=== PATIENT | male | born 1940 | race Caucasian/White ===

== ENCOUNTER 2018-08-04 09:33 | Observation (INO) | payer MEDICARE, BC, SELFPAY ==
[2018-08-04] VITALS (12 sets, daily range): BP systolic 130–185; BP diastolic 76–115; PULSE 75–125; RESP 17–21; TEMP 36.6–37.1; O2SAT 93–98; BMI 31.1
--- NOTE | 2018-08-04 09:53 | DI.RAD.S_ITS ---
PROCEDURE: XR CHEST 1V INDICATIONS: chest pain TECHNIQUE: One view of the chest was acquired. COMPARISON: None. FINDINGS: Surgical changes and devices: None. Lungs and pleura: Mild pulmonary vascular congestion is seen. No focal infiltrate.. No pleural effusions or pneumothorax. Mediastinum: Mediastinal contours appear normal. Heart size is enlarged. Bones and chest wall: No suspicious bony lesions. Overlying soft tissues appear unremarkable. IMPRESSION: Cardiomegaly and mild congestion. No focal infiltrate. Dictated by: Zack Ballard M.D. on 08/04/2018 at 10:08 Approved by: Zack Ballard M.D. on 08/04/2018 at 10:11
[2018-08-04] MEDS: ONDANSETRON 4 MG/2 ML INJ IV (10:13)
--- NOTE | 2018-08-04 10:19 | ED_ITS ---
HPI - Nausea/Vomiting/Diarrhea General Chief complaint: Upper Respiratory Symptoms Stated complaint: SINUS PROBLEMS/VOMITING Time Seen by Provider: 08/04/18 10:06 Source: patient and family Mode of arrival: ambulatory Limitations: no limitations History of Present Illness HPI Narrative: This is a 78-year-old male who comes in with complaint of nausea, vomiting and diarrhea that started on Saturday. Patient states he started feeling bad about Saturday, he has had a sinus infection for several months but did not feel like it was rapidly worsening. He has not been on any recent antibiotics. Patient states that he started getting nauseated having vomiting on Saturday and then diarrhea. He is continuing to have sort of a dry cough heaves and often help cough until he vomits and a post-tussive emesis. Patient had diarrhea and required changing his underwear 4 times overnight. He denies any abdominal pain, he denies any shortness of breath or chest pain or back pain. He states that he cannot feel his heart rate is fast or irregular. He has had the chills and his significant other states that he felt very sweaty and diaphoretic yesterday. Patient has had sort of greenish slime he is not sure if that is from a nasal source or from his chest patient has a history of hypertension, he does not have a history of AFib that he is aware of, he denies any surgical history, he does not smoke he drinks alcohol occasionally, no illicit. His primary care is Dr. Alves. Related Data Home Medications Medication Instructions Recorded Confirmed amlodipine-olmesartan 0.5 tab PO DAILY 08/04/18 08/04/18 Allergies Allergy/AdvReac Type Severity Reaction Status Date / Time No Known Drug Allergies Allergy Verified 08/04/18 09:45 Review of Systems Review of Systems ROS Unobtainable: All systems reviewed & are unremarkable except as noted in HPI and below Constitutional Denies chills, Reports fever(s) ( Subjective), Denies lethargy, Reports malaise and Denies weakness ENT Ears, Nose, Mouth, and Throat: Denies dizziness, Reports nasal congestion, Reports nasal discharge, Denies neck pain, Denies sinus pain and Reports sinus pressure Cardiovascular Denies chest pain, Reports diaphoresis, Denies syncope, Denies irregular heart rhythm, Reports leg edema ( maybe patient), Denies lightheadedness, Denies palpitations, Denies dyspnea, Denies dyspnea on exertion and Denies orthopnea Respiratory Reports change in phlegm color, Denies chest congestion, Reports cough, Denies hemoptysis, Reports excessive phlegm production ( green), Denies dyspnea, Denies dyspnea on exertion and Reports wheezing ( mild weight) Gastrointestinal Gastrointestinal: Denies abdominal pain, Denies change in bowel habits, Reports diarrhea, Reports nausea and Reports vomiting Genitourinary Denies hematuria, Denies flank pain, Denies urinary incontinence, Denies urinary urgency and Reports other ( decreased urine output) Musculoskeletal Denies back pain and Denies neck pain Integumentary/Breasts Denies rash Neurologic Denies dizziness, Denies syncope and Denies weakness Endocrine Denies palpitations Allergic/Immunologic Reports wheezing ( mild weight) PFSH Medical History Hypertension (Acute) Social History household members: spouse Smoking Status: Never smoker alcohol intake: current substance use type: does not use Social History household members: spouse Smoking Status: Never smoker alcohol intake: current substance use type: does not use Exam Narrative Exam Narrative: GEN: well nourished, well appearing male, alert and oriented x 3, patient appears to be in mild distress. HEENT: Atraumatic, pupils are equal round reactive to light, extraocular movements are intact, nares are clear, TMs are clear with no fluid, there is no conjunctival pallor. Throat is clear without any exudates, erythema, tonsillar enlargement or uvular deviation, no sinus tenderness. HEART: irregularly irregular rate and rhythm without murmur, clicks, rubs. Pulses are equal in upper and lower extremities LUNGS:Lungs breath sounds are equal bilaterally patient has a very faint wheeze on the left, wheezes, rales, crackles, chest moves symmetrically, no tachypnea, no accessory muscle use. ABD:bowel sounds hyperactive, soft, non-tender, no guarding, rebound, rigidity, no masses noted, no hepatosplenomegaly :No CVA tenderness MSCL: Non-tender, no muscle atrophy, muscles strength 5/5 upper and lower extremities, full range of motion NEURO:CN 2-12 intact, sensation normal Initial Vital Signs Initial Vital Signs: Vital Signs Temperature 98.4 F 08/04/18 09:40 Pulse Rate 124 H 08/04/18 09:40 Respiratory Rate 20 08/04/18 09:40 Blood Pressure 153/76 H 08/04/18 09:40 Pulse Oximetry 94 08/04/18 09:40 Course Orders Ordered: ED Orders 08/04/18 09:53 XR chest 1V Stat 08/04/18 09:58 EKG-12 Lead Stat 08/04/18 10:18 XR abdomen 1V Stat 08/04/18 10:20 Complete Blood Count AUTO DIFF Stat Comprehensive Metabolic Panel Stat FLU A and B [Influenza A and B by PCR Rapid] Stat Lipase Stat Partial Thromboplastin Time Stat Prothrombin Time INR Stat Troponin & CK Cardiac Panel Stat 08/04/18 11:24 Sputum Culture Stat 08/04/18 11:30 Urine Microscopic Stat 08/04/18 14:56 Education, smoking cessation ONGOING Acetaminophen (Tylenol) 650 mg PO Q6HR PRN PRN Reason: As Needed for Fever/Mild Pain Bisacodyl (Dulcolax) 10 mg PO DAILY PRN PRN Reason: Constipation Calcium Carbonate (Tums) 1,000 mg PO Q4HR PRN PRN Reason: Dyspepsia Heparin Sodium (Porcine) (Heparin) 5,000 unit SUBCUT BID JULIANN Sodium Chloride (Normal Saline 0.9%) 1,000 mls @ 100 mls/hr IV CONT JULIANN Last Admin: 08/04/18 16:08 Dose: 100 mls/hr Ibuprofen (Advil) 600 mg PO Q6HR PRN PRN Reason: As Needed for Fever/Mild Pain Magnesium Hydroxide (Milk Of Magnesia) 30 ml PO DAILY PRN PRN Reason: Constipation Ondansetron HCl (Zofran) 4 mg IV Q8HR PRN PRN Reason: Nausea And Vomiting Ondansetron HCl (Zofran Odt) 4 mg PO Q8HR PRN PRN Reason: Nausea And Vomiting Promethazine HCl (Phenadoz) 12.5 mg NC Q6HR PRN PRN Reason: Nausea And Vomiting Sennosides (Senna) 17.2 mg PO BEDTIME PRN PRN Reason: Constipation Discontinued Medications Sodium Chloride (Normal Saline 0.9%) 1,000 mls @ 1,000 mls/hr IV BOLUS ONE Stop: 08/04/18 11:17 Last Infusion: 08/04/18 11:36 Dose: 0 mls/hr Admin: 08/04/18 10:20 Dose: 1,000 mls/hr Sodium Chloride (Normal Saline 0.9%) 1,000 mls @ 1,000 mls/hr IV BOLUS ONE Stop: 08/04/18 12:32 Last Infusion: 08/04/18 13:27 Dose: 0 mls/hr Admin: 08/04/18 12:11 Dose: 1,000 mls/hr Ondansetron HCl (Zofran) 4 mg IV NOW ONE Stop: 08/04/18 09:54 Last Admin: 08/04/18 10:13 Dose: 4 mg Vital Signs - 8 hr 08/04/18 09:40 08/04/18 10:10 08/04/18 10:30 Temperature 98.4 F Pulse Rate 124 H 125 H 116 H Respiratory Rate 20 17 18 Blood Pressure Blood Pressure [Right Arm] 153/76 H 153/91 H 161/97 H Pulse Oximetry 94 93 97 08/04/18 11:15 08/04/18 11:30 08/04/18 12:02 Temperature Pulse Rate 101 H 97 H 104 H Respiratory Rate 20 21 18 Blood Pressure Blood Pressure [Right Arm] 157/89 H 173/103 H 149/100 H Pulse Oximetry 96 95 95 08/04/18 12:30 08/04/18 13:00 08/04/18 14:13 Temperature 98.7 F Pulse Rate 103 H 92 H 109 H Respiratory Rate 20 18 20 Blood Pressure 185/115 H Blood Pressure [Right Arm] 157/100 H 172/105 H Pulse Oximetry 96 97 98 08/04/18 15:06 08/04/18 15:50 Temperature 98.3 F Pulse Rate 98 H 90 Respiratory Rate 19 Blood Pressure 154/81 H 130/84 Blood Pressure [Right Arm] Pulse Oximetry 98 93 MDM - Nausea/Vomiting/Diarrhea Lab Data Result diagrams: 08/04/18 10:20 08/04/18 10:20 Lab Results 08/04/18 08/04/18 08/04/18 Range/Units 10:20 10:20 10:20 WBC 6.6 (4.5-11.0) X10^3/uL RBC 5.21 (4.5-5.9) X10^6/uL Hgb 16.6 (13.5-17.5) g/dL Hct 50.0 (41-53) % MCV 96.0 (80-100) fL MCH 32.0 (26-34) PG MCHC 33.3 (30-36) % RDW 13.0 (11.6-14.8) % Plt Count 138 L (150-400) X10^3/uL Neut % (Auto) 79.0 H (50-75) % Lymph % (Auto) 14.3 L (25-40) % Hartley % (Auto) 6.4 (3-14) % Eos % (Auto) 0.1 L (2-4) % Baso % (Auto) 0.2 (0-2) % Neut # (Auto) 5200 (9238-9319) /uL Lymph # (Auto) 900 L (2324-6414) /uL Hartley # (Auto) 400 (0-900) /uL Eos # (Auto) 0 (0-450) /uL Baso # (Auto) 0 (0-100) /uL PT 12.2 (10.1-12.7) SECONDS INR 1.1 (0.9-1.3) APTT 22 L (26.4-36.2) SECONDS Sodium 136 L (137-145) mmol/L Potassium 3.9 (3.4-5.1) mmol/L Chloride 97 L (98-107) mmol/L Carbon Dioxide 25 (22-32) mmol/L BUN 23 H (9-20) mg/dL Creatinine 1.10 (0.66-1.25) mg/dL Estimated GFR > 60.0 (>60) mL/min BUN/Creatinine Ratio 20.9 (6-22) Glucose 128 H (80-110) mg/dL Calcium 8.9 (8.4-10.2) mg/dL Total Bilirubin 0.6 (0.2-1.3) mg/dL AST 57 (17-59) IU/L ALT 34 (21-72) IU/L Alkaline Phosphatase 55 (38-126) U/L Total Creatine Kinase 752 H (55-170) U/L CK-MB (CK-2) 3.28 H (<2.37) ng/mL CK-MB (CK-2) Rel Index 0.4 L (1.5-5.0) % Troponin I 0.020 (0.01-0.034) ng/mL Total Protein 7.7 (6.3-8.2) g/dL Albumin 4.4 (3.5-5.0) g/dL Globulin 3.3 (1.7-4.1) g/dL Albumin/Globulin Ratio 1.3 (1.0-2.8) Lipase 57 (23-300) U/L Urine RBC (0-5/HPF) Urine WBC (0-5/HPF) Ur Squamous Epith Cells Urine Bacteria (None) Granular Casts (None) Ur Culture Indicated? Influenza A & B (PCR) (Negative) 08/04/18 08/04/18 Range/Units 10:20 11:30 WBC (4.5-11.0) X10^3/uL RBC (4.5-5.9) X10^6/uL Hgb (13.5-17.5) g/dL Hct (41-53) % MCV (80-100) fL MCH (26-34) PG MCHC (30-36) % RDW (11.6-14.8) % Plt Count (150-400) X10^3/uL Neut % (Auto) (50-75) % Lymph % (Auto) (25-40) % Hartley % (Auto) (3-14) % Eos % (Auto) (2-4) % Baso % (Auto) (0-2) % Neut # (Auto) (8990-7428) /uL Lymph # (Auto) (8658-5608) /uL Hartley # (Auto) (0-900) /uL Eos # (Auto) (0-450) /uL Baso # (Auto) (0-100) /uL PT (10.1-12.7) SECONDS INR (0.9-1.3) APTT (26.4-36.2) SECONDS Sodium (137-145) mmol/L Potassium (3.4-5.1) mmol/L Chloride (98-107) mmol/L Carbon Dioxide (22-32) mmol/L BUN (9-20) mg/dL Creatinine (0.66-1.25) mg/dL Estimated GFR (>60) mL/min BUN/Creatinine Ratio (6-22) Glucose (80-110) mg/dL Calcium (8.4-10.2) mg/dL Total Bilirubin (0.2-1.3) mg/dL AST (17-59) IU/L ALT (21-72) IU/L Alkaline Phosphatase (38-126) U/L Total Creatine Kinase (55-170) U/L CK-MB (CK-2) (<2.37) ng/mL CK-MB (CK-2) Rel Index (1.5-5.0) % Troponin I (0.01-0.034) ng/mL Total Protein (6.3-8.2) g/dL Albumin (3.5-5.0) g/dL Globulin (1.7-4.1) g/dL Albumin/Globulin Ratio (1.0-2.8) Lipase (23-300) U/L Urine RBC None seen (0-5/HPF) Urine WBC 1-5/hpf (0-5/HPF) Ur Squamous Epith Cells 1-5 /hpf Urine Bacteria None seen (None) Granular Casts 5-10/lpf (None) Ur Culture Indicated? Cult not indicated Influenza A & B (PCR) Positive, type a A (Negative) Urine Dip Bedside Urine Glucose Negative Bedside Urine Bilirubin + 1 Bedside Urine Ketone ++ 40 Urine Specific Logan 1.030 Bedside Urine Occult Blood ++ Bedside Urine pH 5.5 Bedside Urine Protein ++ 100 Bedside Urine Urobilinogen +/- 1mg Bedside Urine Nitrite - Negative Bedside Urine Leukocytes - Negative Esterase Imaging Data Chest x-ray: Radiologist's impression: [place] [address] XRay Report Signed Patient: Alex Kwan MMR#: [id number] : 1940Acct:[id number] Age/Sex: 78 / MDate of Service: 08/04/18 Loc: ED Accession Number: [id number] Procedure: XR chest 1V Ordering Provider: Ericka Junior D.O. PROCEDURE: XR CHEST 1V INDICATIONS: chest pain TECHNIQUE: One view of the chest was acquired. COMPARISON: None. FINDINGS: Surgical changes and devices: None. Lungs and pleura: Mild pulmonary vascular congestion is seen. No focal infiltrate.. No pleural effusions or pneumothorax. Mediastinum: Mediastinal contours appear normal. Heart size is enlarged. Bones and chest wall: No suspicious bony lesions. Overlying soft tissues appear unremarkable. IMPRESSION: Cardiomegaly and mild congestion. No focal infiltrate. Dictated by: Zack Ballard M.D. on 08/04/2018 at 10:08 Approved by: Zack Ballard M.D. on 08/04/2018 at 10:11 Abdominal x-ray: Radiologist's impression: [address] [address] XRay Report Signed Patient: Alex Kwan#: [id number] : 1940Acct:[id number] Age/Sex: 78 / MDate of Service: 08/04/18 Loc: ED Accession Number: [id number] Procedure: XR abdomen 1V Ordering Provider: Ericka Junior D.O. PROCEDURE: XR ABDOMEN 1V INDICATIONS: vomiting/diarrhea TECHNIQUE: One view of the abdomen acquired. COMPARISON: None. FINDINGS: Surgical changes and devices: None. Bowel: Bowel gas pattern is normal. Soft tissues: No suspicious abdominal calcifications. Visualized solid organ contours appear normal in size. Bones: No suspicious bony lesions. Age-appropriate bony degenerative changes are seen. IMPRESSION: A nonobstructive bowel gas pattern is seen. As clinically appropriate, please consider a repeat plain film study or a dedicated CT of the abdomen and pelvis, if the patient's symptoms persist or worsen. Dictated by: Markus Champion M.D. on 08/04/2018 at 9:44 Approved by: Markus Champion M.D. on 08/04/2018 at 9:45 ECG Data Attestation: I personally reviewed and interpreted this ECG as follows: Prior ECG tracings: not available for review Interpretation: AFib with rapid ventricular response with a rate of 132, P are not present, QRS of 148 and QTC of 390. Patient appears have a right bundle branch block as well as a left anterior fascicular block. MDM Narrative Medical decision making narrative: Patient is in AFib with RVR but I suspect some of this may be secondary to dehydration with his vomiting and diarrhea. He also has not been able to take his typical medication because he has been throwing up. Plan to get some fluids and re-evaluate his heart rate influenza was positive. Patient's heart rate has been improving with fluids after a L and a half he has come down to 103 for his rate. Patient's oxygen did dip while he was here in the department into the high 80s. Patient was not asleep Um and he has had pretty extensive purulent green sputum. Chest x-ray does not show a clear infiltrate to start on antibiotics. Discussed with Dr. Goldstein and she accepts for observation. Discharge Plan Departure Patient Disposition: Admitted as Observation Clinical Impression: Influenza A, Atrial fibrillation with RVR, Hypoxia Discharge Date/Time: 08/04/18 13:45 Interventions: ED Discharge Assessment Last Done: 08/04/18 13:32 Admit Date/Time: 08/04/18 13:19 Admit Provider: Sabina Culp
[2018-08-04] MEDS: SODIUM CHLORIDE 0.9% 1,000 ML 1000 ML IV ×2 (10:20→12:11)
[2018-08-04 10:24] LABS: Add Manual Diff / Slide Review NO; Basophils Absolute Auto 0 /uL (0-100); Basophils Percent Auto 0.2 % (0-2); Eosinophils Absolute Auto 0 /uL (0-450); Eosinophils Percent Auto 0.1 % (2-4); Hemoglobin 16.6 g/dL (13.5-17.5); Lymphocytes Absolute Auto 900 /uL (1100-4500); Lymphocytes Percent Auto 14.3 % (25-40); Mean Corpuscular HGB Conc 33.3 % (30-36); Monocytes Absolute Auto 400 /uL (0-900); Monocytes Percent Auto 6.4 % (3-14); Neutrophils Absolute Auto 5200 /uL (1500-7000); Platelet Count 138 X10^3/uL (150-400); Red Blood Cell Count 5.21 X10^6/uL (4.5-5.9); White Blood Cell Count 6.6 X10^3/uL (4.5-11.0)
[2018-08-04 10:27] LABS: INR 1.1 (0.9-1.3); Prothrombin Time 12.2 SECONDS (10.1-12.7)
[2018-08-04 10:30] LABS: PTT Partial Thromboplastin Tim 22 SECONDS (26.4-36.2)
[2018-08-04 10:38] LABS: Alanine Aminotransferase 34 IU/L (21-72); Albumin 4.4 g/dL (3.5-5.0); Albumin Globulin Ratio 1.3 (1.0-2.8); Alkaline Phosphatase 55 U/L (38-126); Aspartate Aminotransferase 57 IU/L (17-59); BUN Creatinine Ratio 20.9 (6-22); Bilirubin Total 0.6 mg/dL (0.2-1.3); Blood Urea Nitrogen 23 mg/dL (9-20); Calcium 8.9 mg/dL (8.4-10.2); Carbon Dioxide 25 mmol/L (22-32); Chloride 97 mmol/L (98-107); Creatine Kinase 752 U/L (55-170); Estimated Glomerular Filt Rate > 60.0 mL/min (>60); Globulin 3.3 g/dL (1.7-4.1); Glucose 128 mg/dL (80-110); HEMOLYSIS 31 (0-50); Lipase 57 U/L (23-300); Potassium 3.9 mmol/L (3.4-5.1); Sodium 136 mmol/L (137-145); Total Protein 7.7 g/dL (6.3-8.2)
[2018-08-04 10:56] LABS: CKMB % Relative Index 0.4 % (1.5-5.0); Creatine Kinase MB 3.28 ng/mL (<2.37)
[2018-08-04 12:08] LABS: Bacteria Urine None Seen; RBC Urine None Seen (0-5/HPF); WBC Urine 1-5/HPF (0-5/HPF)
[2018-08-04 12:09] LABS: Culture Indicated Urine Cult Not Indicated; Granular Casts Urine 5-10/LPF; Squamous Epithelial Cell Urine 1-5 /HPF
--- NOTE | 2018-08-04 15:04 | PM.HP.1 ---
History of Present Illness Date Patient Seen: 08/04/18 Chief complaint: SINUS PROBLEMS/VOMITING Narrative: Alex Kwan is an 78-year-old male with a past medical history significant for hypertension who presented complaining of cough with sputum production since last Sunday 07/30. He reports that he began coughing last Saturday. His cough has become gradually productive and he reports ?it is loosening up.? He is had accompanying nausea, diarrhea (5-6 episodes a day which has now resolved), chills, dizziness, rhinitis and nasal congestion. He denies fever, vomiting, hemoptysis, ear pain, shortness of breath, or chest pain. He also reports significant coughing that has led to Post-tussive emesis and his stomach muscles aching. He did not get his flu shot this year. He denies sick contacts. He reports poor appetite. He has no other symptoms and does not believe he has had Influenza before. Patient is positive for influenza A. He was also found to be in atrial fibrillation with RVR which responded to IV fluid administration and he converted to normal sinus rhythm at 15:15. He denies any history of previous atrial fibrillation or irregular heart rhythm. He has no history of blood clots. Patient History Medical History Hypertension (Acute) Skin cancer of chest, excluding breast (Acute) Skin cancer of face (Acute) Surgical History History of bilateral inguinal hernia repair (Acute) History of tonsillectomy (Acute) Family History Father Heart attack Mother No problems noted. Brother Heart disease History of heart artery stent Sister History of heart artery stent Heart disease Social History household members: spouse Smoking Status: Never smoker alcohol intake: current substance use type: does not use Family & Social History Family History Father Heart attack Mother No problems noted. Brother Heart disease History of heart artery stent Sister History of heart artery stent Heart disease Social History: household members spouse Prior Living Arrangements House The patient has been for 67 years. He has 3 daughters, one of which has lupus and is on dialysis and the other 2 are healthy. Safety & Behavioral: Feels Safe in Current Yes Environment Been Physically Hurt or No Threatened By a Person Suicidal Ideation Description None Suicide Plan Description No Plan Tobacco & Substance use: Smoking Status Never smoker alcohol intake current alcohol intake frequency 1-2 drinks a week Substance Use Type does not use Meds Home Medications Medication Instructions Recorded Confirmed Type amlodipine-olmesartan 0.5 tab PO DAILY 08/04/18 08/04/18 History Allergies Allergy/AdvReac Type Severity Reaction Status Date / Time No Known Drug Allergies Allergy Verified 08/04/18 09:45 Review of Systems Review of Systems A 10 system comprehensive review of systems was conducted with the patient and found to be negative except as above in the History of Present Illness. Exam Vital Signs (past 8 hours): - 08/04/18 09:40 08/04/18 10:10 08/04/18 10:30 Temperature 98.4 F Pulse Rate 124 H 125 H 116 H Respiratory Rate 20 17 18 Blood Pressure Blood Pressure [Right Arm] 153/76 H 153/91 H 161/97 H Pulse Oximetry 94 93 97 08/04/18 11:15 08/04/18 11:30 08/04/18 12:02 Temperature Pulse Rate 101 H 97 H 104 H Respiratory Rate 20 21 18 Blood Pressure Blood Pressure [Right Arm] 157/89 H 173/103 H 149/100 H Pulse Oximetry 96 95 95 08/04/18 12:30 08/04/18 13:00 08/04/18 14:13 Temperature 98.7 F Pulse Rate 103 H 92 H 109 H Respiratory Rate 20 18 20 Blood Pressure 185/115 H Blood Pressure [Right Arm] 157/100 H 172/105 H Pulse Oximetry 96 97 98 Oxygen Delivery Method Nasal Cannula Oxygen Flow Rate 2 Narrative Exam Narrative: General: Older gentleman lying in bed and in no acute distress, appears younger than his stated age, well-developed, well-nourished, appropriately interactive. HEENT: Normocephalic, atraumatic. External ears without defect. Pupils equal, round, and reactive to light. Anicteric sclerae, moist conjunctivae, and no lid lag. Oropharynx free of erythema and cobble stoning with moist mucosa. Neck: Supple with full range of motion. No jugular venous distension. No bruits. No lymphadenopathy or thyromegaly. Cardiovascular: Regular rate and rhythm without murmurs, rubs, or gallops appreciated. Pulmonary: Clear to auscultation bilaterally with scattered wheeze. No obvious rales or crackles. Normal respiratory effort with no use of accessory muscles. Abdomen: Soft, bowel sounds present, nontender, nondistended. No hepatosplenomegaly or masses appreciated. Extremities: No clubbing, cyanosis, or edema. Skin: Normal temperature, turgor, and texture; no rash, ulcers, or subcutaneous nodules appreciated. Neurological: Cranial nerves grossly intact. Normal muscle strength, tone, and bulk. Reflexes, coordination, and sensory function within normal limits. No known gait impairment. Psychiatric: Normal mood and affect. Alert and oriented to person, place, and time. Objective Labs Result Diagrams: 08/04/18 10:20 08/04/18 10:20 Labs: Laboratory Results - last 24 hr 08/04/18 08/04/18 08/04/18 10:20 10:20 10:20 WBC 6.6 RBC 5.21 Hgb 16.6 Hct 50.0 MCV 96.0 MCH 32.0 MCHC 33.3 RDW 13.0 Plt Count 138 L Neut % (Auto) 79.0 H Lymph % (Auto) 14.3 L [place] % (Auto) 6.4 Eos % (Auto) 0.1 L Baso % (Auto) 0.2 Neut # (Auto) 5200 Lymph # (Auto) 900 L [place] # (Auto) 400 Eos # (Auto) 0 Baso # (Auto) 0 PT 12.2 INR 1.1 APTT 22 L Sodium 136 L Potassium 3.9 Chloride 97 L Carbon Dioxide 25 BUN 23 H Creatinine 1.10 Estimated GFR > 60.0 BUN/Creatinine Ratio 20.9 Glucose 128 H Calcium 8.9 Total Bilirubin 0.6 AST 57 ALT 34 Alkaline Phosphatase 55 Total Creatine Kinase 752 H CK-MB (CK-2) 3.28 H CK-MB (CK-2) Rel Index 0.4 L Troponin I 0.020 Total Protein 7.7 Albumin 4.4 Globulin 3.3 Albumin/Globulin Ratio 1.3 Lipase 57 Urine RBC Urine WBC Ur Squamous Epith Cells Urine Bacteria Granular Casts Ur Culture Indicated? Influenza A & B (PCR) 08/04/18 08/04/18 10:20 11:30 WBC RBC Hgb Hct MCV MCH MCHC RDW Plt Count Neut % (Auto) Lymph % (Auto) [place] % (Auto) Eos % (Auto) Baso % (Auto) Neut # (Auto) Lymph # (Auto) [place] # (Auto) Eos # (Auto) Baso # (Auto) PT INR APTT Sodium Potassium Chloride Carbon Dioxide BUN Creatinine Estimated GFR BUN/Creatinine Ratio Glucose Calcium Total Bilirubin AST ALT Alkaline Phosphatase Total Creatine Kinase CK-MB (CK-2) CK-MB (CK-2) Rel Index Troponin I Total Protein Albumin Globulin Albumin/Globulin Ratio Lipase Urine RBC None seen Urine WBC 1-5/hpf Ur Squamous Epith Cells 1-5 /hpf Urine Bacteria None seen Granular Casts 5-10/lpf Ur Culture Indicated? Cult not indicated Influenza A & B (PCR) Positive, type a A Assessment & Plan Assessment & Plan narrative: Alex Kwan is an 78-year-old male with a past medical history significant for hypertension who presented complaining of cough with sputum production since last Sunday 07/30. He reports that he began coughing last Saturday. 1. Acute influenza A URI, present on admission. Active. -Patient presented with cough productive of sputum, nausea, chills, rhinitis, nasal congestion, and diarrhea. -Patient found to be positive for influenza A in ED. Patient is outside window for therapeutic treatment with oseltamivir. -Will treat patient symptomatically with Sudafed 30 mg every 6 hr as needed, nasal saline spray 3-4 times daily, Mucinex 1200 mg twice daily, and Tessalon Perles 100 mg 3 times daily as needed for cough. -Chest x-ray did not demonstrate a clear infiltrate, however, may blossom once patient receives IV fluids. -Will order complete pneumonia workup including: Respiratory viral PCR, sputum culture, strep pneumoniae and Legionella urine antigens, and blood cultures. -Will hold off on starting empiric antibiotics for pneumonia for now. Repeat chest x-ray if cough worsens or clinical exam changes. 2. New onset atrial fibrillation with RVR, present on admission. Resolved. -Patient initially was found to be in atrial fibrillation with RVR with heart rate in the 120s which improved with IV fluid administration. -Patient's [id number] score is a 3 making him moderate-high risk and should be anticoagulated. -Discussed anticoagulation in depth and will start aspirin 81 mg daily for now and we visit other more potent anticoagulants tomorrow after he has had time to think about it and is able to discuss with his . -Continue to monitor closely on telemetry. 3. Hypertension, chronic, present on admission. Stable. -Continue patient's amlodipine-olmesartan 5-40 mg daily. Patient is admitted under observation status with expected length of stay less than 2 midnights due to severity of presenting symptoms, risk of adverse event, and complexity of treatment plan.
--- NOTE | 2018-08-04 15:35 | PC.NURSE ---
Admit: Arrived to room 231 approx 1400. Awake and alert, oriented X3. SpO2 on 2L 98% at rest. Ambulated into bathroom with SBA. Oriented to room and call light, instructed to call for SBA OOB. Admit assessment completed by charge preparation technician, vikas shift RN aware that other admit assessment items still need to be completed.
[2018-08-04] MEDS: SODIUM CHLORIDE 0.9% 1,000 ML 100 ML IV (16:08)
[2018-08-04] MEDS: guaiFENesin ER 600 MG TAB 1200 MG PO (20:30)
[2018-08-04] MEDS: BENZONATATE 100 MG CAPSULE PO (20:31)
[2018-08-04] MEDS: HEPARIN 5,000 UNIT/ML VIAL 5000 UNIT SUBCUT (20:31)
[2018-08-04] MEDS: ASPIRIN EC 81 MG TABLET PO (20:31)
[2018-08-05] VITALS (11 sets, daily range): BP systolic 156–173; BP diastolic 87–103; PULSE 68–85; RESP 16–20; TEMP 35.9–37.6; O2SAT 90–96
[2018-08-05 00:18] LABS: Adenovirus Not Detected (Not Detect); Bordetella pertussis Not Detected (Not Detect); Chlamydophila pneumoniae Not Detected (Not Detect); Coronavirus 229E Not Detected (Not Detect); Coronavirus HKU1 Not Detected (Not Detect); Coronavirus NL 63 Not Detected (Not Detect); Coronavirus OC43 Not Detected (Not Detect); Human Metapneumovirus Not Detected (Not Detect); Human Rhinovirus/Enterovirus Not Detected (Not Detect); Influenza A Detected (Not Detect); Influenza B Not Detected (Not Detect); Mycoplasma pneumoniae Not Detected (Not Detect); Parainfluenza Virus 1 Not Detected (Not Detect); Parainfluenza Virus 2 Not Detected (Not Detect); Parainfluenza Virus 3 Not Detected (Not Detect); Parainfluenza Virus 4 Not Detected (Not Detect); Respiratory Syncytial Virus Not Detected (Not Detect)
[2018-08-05] MEDS: SODIUM CHLORIDE 0.9% 1,000 ML 100 ML IV (02:20)
--- NOTE | 2018-08-05 03:57 | PC.NURSE ---
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 IV in place in rt forearm, with NS infusing at 100cc/hr. Pt has occasional dry cough. Pt remains in droplet precautions for Influenza A. He remains on telemetry.
[2018-08-05 05:57] LABS: Add Manual Diff / Slide Review NO; Basophils Absolute Auto 0 /uL (0-100); Basophils Percent Auto 0.2 % (0-2); Eosinophils Absolute Auto 0 /uL (0-450); Eosinophils Percent Auto 0.5 % (2-4); Hemoglobin 13.4 g/dL (13.5-17.5); Lymphocytes Absolute Auto 1000 /uL (1100-4500); Lymphocytes Percent Auto 24.1 % (25-40); Mean Corpuscular HGB Conc 32.6 % (30-36); Mean Corpuscular Hemoglobin 31.5 PG (26-34); Mean Corpuscular Volume 96.5 fL (80-100); Monocytes Absolute Auto 400 /uL (0-900); Monocytes Percent Auto 8.3 % (3-14); Neutrophils Absolute Auto 2800 /uL (1500-7000); Neutrophils Percent Auto 66.9 % (50-75); Platelet Count 121 X10^3/uL (150-400); Red Blood Cell Count 4.25 X10^6/uL (4.5-5.9); Red Cell Distribution Width 12.5 % (11.6-14.8); White Blood Cell Count 4.2 X10^3/uL (4.5-11.0)
[2018-08-05 06:07] LABS: BUN Creatinine Ratio 17.3 (6-22); Blood Urea Nitrogen 19 mg/dL (9-20); Calcium 7.9 mg/dL (8.4-10.2); Carbon Dioxide 27 mmol/L (22-32); Chloride 102 mmol/L (98-107); Estimated Glomerular Filt Rate > 60.0 mL/min (>60); Glucose 94 mg/dL (80-110); HEMOLYSIS < 15 (0-50); Sodium 135 mmol/L (137-145)
[2018-08-05 06:20] LABS: Procalcitonin 0.67 ng/mL (<0.5)
[2018-08-05 06:37] LABS: Thyroid Stimulating Hormone 0.64 uIU/mL (0.47-4.68)
[2018-08-05] MEDS: AMLODIPINE 2.5 MG TABLET PO (09:18)
[2018-08-05] MEDS: ASPIRIN EC 81 MG TABLET PO (09:19)
[2018-08-05] MEDS: HEPARIN 5,000 UNIT/ML VIAL 5000 UNIT SUBCUT (09:19)
[2018-08-05] MEDS: guaiFENesin ER 600 MG TAB 1200 MG PO (09:19)
[2018-08-05] MEDS: OLMESARTAN 20 MG TABLET PO (09:20)
[2018-08-05] MEDS: ACETAMINOPHEN 325 MG TABLET 650 MG PO (09:21)
[2018-08-05] MEDS: BENZONATATE 100 MG CAPSULE PO (09:21)
--- NOTE | 2018-08-05 12:00 | PM.DS.1 ---
History of Present Illness Date Patient Seen: 08/04/18 Chief complaint: SINUS PROBLEMS/VOMITING Narrative: Written by myself Dr. Culp: Alex Kwan is an 78-year-old male with a past medical history significant for hypertension who presented complaining of cough with sputum production since last Sunday 07/30. He reports that he began coughing last Saturday. His cough has become gradually productive and he reports ?it is loosening up.? He is had accompanying nausea, diarrhea (5-6 episodes a day which has now resolved), chills, dizziness, rhinitis and nasal congestion. He denies fever, vomiting, hemoptysis, ear pain, shortness of breath, or chest pain. He also reports significant coughing that has led to Post-tussive emesis and his stomach muscles aching. He did not get his flu shot this year. He denies sick contacts. He reports poor appetite. He has no other symptoms and does not believe he has had Influenza before. Patient is positive for influenza A. He was also found to be in atrial fibrillation with RVR which responded to IV fluid administration and he converted to normal sinus rhythm at 15:15. He denies any history of previous atrial fibrillation or irregular heart rhythm. He has no history of blood clots. Discharge Providers Date of admission: 08/04/18 13:19 Discharge provider: Sabina Culp DO Discharge Date: 08/05/18 Summary Discharge Diagnosis: 1. Acute influenza A URI, present on admission. Resolving and improving. 2. New onset atrial fibrillation with RVR, present on admission. Resolved. 3. Hypertension, chronic, present on admission. Stable. Hospital Course: Alex Kwan is an 78-year-old male with a past medical history significant for hypertension who presented complaining of cough with sputum production since last Sunday 07/30. He reports that he began coughing last Saturday. 1. Acute influenza A URI, present on admission. Resolving and improving. -Patient presented with cough productive of sputum, nausea, chills, rhinitis, nasal congestion, and diarrhea. -Patient found to be positive for influenza A in ED. Patient is outside window for therapeutic treatment with oseltamivir. -Will treat patient symptomatically with Sudafed 30 mg every 6 hr as needed, nasal saline spray 3-4 times daily, Mucinex 1200 mg twice daily, and Tessalon Perles 100 mg 3 times daily as needed for cough. -Chest x-ray did not demonstrate a clear infiltrate and does not have pneumonia by clinical exam. -Ordered complete pneumonia workup including: Respiratory viral PCR positive for influenza A, sputum culture preliminarily growing heavy growth normal respiratory isabel, strep pneumoniae and Legionella urine antigens pending. -Provided as needed Xopenex as needed for wheezing. 2. New onset atrial fibrillation with RVR, present on admission. Resolved. -Patient initially was found to be in atrial fibrillation with RVR with heart rate in the 120s which improved with IV fluid administration and he spontaneously converted into normal sinus rhythm as below. -Patient's [id number] score is a 3 making him moderate-high risk and should be anti-coagulated. -Discussed anticoagulation in depth. Continue aspirin 81 mg daily for now. The patient would like some time to think about more potent blood thinners and discuss this with his , as well as, his PCP [facility]. -Continued to monitor closely on telemetry. Patient spontaneously converted to normal sinus rhythm at 15:15 on 08/04 after IV fluid administration and has been in normal sinus rhythm since. 3. Hypertension, chronic, present on admission. Stable. -Continued patient's amlodipine-olmesartan 5-40 mg daily. Status at Discharge Functional status at discharge: independent ambulation Overall status at discharge: patient is progressing back to baseline Exam Vital Signs (past 8 hours): - 08/05/18 05:25 08/05/18 08:20 08/05/18 09:21 Temperature 98.0 F 99.6 F 99.6 F Pulse Rate 76 70 Respiratory Rate 16 Blood Pressure 156/96 H 173/103 H Pulse Oximetry 96 08/05/18 09:39 08/05/18 09:44 08/05/18 09:45 Temperature Pulse Rate Respiratory Rate Blood Pressure Pulse Oximetry 92 94 90 L 08/05/18 11:36 Temperature Pulse Rate Respiratory Rate Blood Pressure Pulse Oximetry 93 Oxygen Delivery Method Room Air Oxygen Flow Rate 0 Narrative Exam Narrative: General: Older gentleman lying in bed and in no acute distress, appears to be feeling better than yesterday, appears younger than his stated age, well-developed, well-nourished, appropriately interactive. HEENT: Normocephalic, atraumatic. External ears without defect. Pupils equal, round, and reactive to light. Anicteric sclerae, moist conjunctivae, and no lid lag. Oropharynx free of erythema and cobble stoning with moist mucosa. Neck: Supple with full range of motion. No jugular venous distension. No bruits. No lymphadenopathy or thyromegaly. Cardiovascular: Regular rate and rhythm without murmurs, rubs, or gallops appreciated. Pulmonary: Clear to auscultation bilaterally with wheeze in RUL. No obvious rales or crackles. Normal respiratory effort with no use of accessory muscles. Abdomen: Soft, bowel sounds present, non-tender, non-distended. No hepatosplenomegaly or masses appreciated. Extremities: No clubbing, cyanosis, or edema. Skin: Normal temperature, turgor, and texture; no rash, ulcers, or subcutaneous nodules appreciated. Neurological: Cranial nerves grossly intact. Normal muscle strength, tone, and bulk. Reflexes, coordination, and sensory function within normal limits. No known gait impairment. Psychiatric: Normal mood and affect. Alert and oriented to person, place, and time. Objective Labs Result Diagrams: 08/05/18 04:53 08/05/18 04:53 Labs: Laboratory Results - last 24 hr 08/04/18 08/04/18 08/05/18 11:30 22:50 04:53 WBC 4.2 L RBC 4.25 L Hgb 13.4 L Hct 41.0 MCV 96.5 MCH 31.5 MCHC 32.6 RDW 12.5 Plt Count 121 L Neut % (Auto) 66.9 Lymph % (Auto) 24.1 L [place] % (Auto) 8.3 Eos % (Auto) 0.5 L Baso % (Auto) 0.2 Neut # (Auto) 2800 Lymph # (Auto) 1000 L [place] # (Auto) 400 Eos # (Auto) 0 Baso # (Auto) 0 Sodium Potassium Chloride Carbon Dioxide BUN Creatinine Estimated GFR BUN/Creatinine Ratio Glucose Calcium Procalcitonin TSH Urine RBC None seen Urine WBC 1-5/hpf Ur Squamous Epith Cells 1-5 /hpf Urine Bacteria None seen Granular Casts 5-10/lpf Ur Culture Indicated? Cult not indicated Chlamy pneumoniae PCR Not detected Adenovirus (PCR) Not detected B.parapertussis DNA PCR Not detected Coronavirus OC43 (PCR) Not detected Coronavirus HKU1 (PCR) Not detected Coronavirus 229E (PCR) Not detected Coronavirus NL63 (PCR) Not detected Human Metapneumovir PCR Not detected Influenza Type A (PCR) Detected H Influenza Type B (PCR) Not detected M. pneumoniae (PCR) Not detected Parainfluenza 1 (PCR) Not detected Parainfluenza 2 (PCR) Not detected Parainfluenza 3 (PCR) Not detected Parainfluenza 4 (PCR) Not detected RSV (PCR) Not detected Entero/Rhino (PCR) Not detected 08/05/18 08/05/18 08/05/18 04:53 04:53 04:53 WBC RBC Hgb Hct MCV MCH MCHC RDW Plt Count Neut % (Auto) Lymph % (Auto) [place] % (Auto) Eos % (Auto) Baso % (Auto) Neut # (Auto) Lymph # (Auto) [place] # (Auto) Eos # (Auto) Baso # (Auto) Sodium 135 L Potassium 4.0 Chloride 102 Carbon Dioxide 27 BUN 19 Creatinine 1.10 Estimated GFR > 60.0 BUN/Creatinine Ratio 17.3 Glucose 94 Calcium 7.9 L Procalcitonin 0.67 H TSH 0.64 Urine RBC Urine WBC Ur Squamous Epith Cells Urine Bacteria Granular Casts Ur Culture Indicated? Chlamy pneumoniae PCR Adenovirus (PCR) B.parapertussis DNA PCR Coronavirus OC43 (PCR) Coronavirus HKU1 (PCR) Coronavirus 229E (PCR) Coronavirus NL63 (PCR) Human Metapneumovir PCR Influenza Type A (PCR) Influenza Type B (PCR) M. pneumoniae (PCR) Parainfluenza 1 (PCR) Parainfluenza 2 (PCR) Parainfluenza 3 (PCR) Parainfluenza 4 (PCR) RSV (PCR) Entero/Rhino (PCR) Discharge Plan Discharge Plan Patient Disposition: Home Discharge Med Rec/Prescriptions Prescriptions: New aspirin 81 mg Tablet,Delayed Release (Dr/Ec) 81 mg PO DAILY Qty: 30 RF: 0 Continued amlodipine-olmesartan 5-40 mg tablet 0.5 tab PO DAILY RF: 0 Follow up/Referrals: Paco Pina MD [Physician] - 08/13/18 2:15 pm (appt:08/13 @ 2:[address] pina [phone] ) Visit Report/Discharge Packet Instructions: DI for Atrial Fibrillation, DI for H1N1 Influenza -- Adult Discharge Data Attending Provider: Sabina Culp Admit Date/Time: 08/04/18 13:19
[2018-08-05] MEDS: LEVALBUTEROL 1.25 MG/0.5 ML NEB INH (12:26)
--- NOTE | 2018-08-05 13:38 | PC.NURSE ---
Discharge: Tele dc'd. IV dc'd intact. Had RT tx prior to discharge. Room air sats 93-94% at this time. Reviewed all d/c info thoroughly, including s/sx stroke/TIA and symptoms with which to call the doctor (or 911 in case of stroke/chest pain/worsening respiratory symptoms. Given education material on A-fib, influenza and Aspirin. Given follow up appt info, he will discuss anticoagulation with Dr Alves. Encouraged to rest as much as possible and drink plenty of hydrating fluids. All belongings collected and sent with patient at discharge including cellphone, glasses, clothing and shoes. Verbalized understanding of all d/c instructions and stated no further questions. Wheeled out to private vehicle accompanied by nursing staff.
--- NOTE | 2018-08-05 14:08 | CM.DANOTE ---
Discharge Planning/Care Management DCP: assessement: Case received today at noon in order to assist the DCP/[employer] G[employer]ER team. EMR reviewed and noted pt on droplet precautions for Influenza A Pt is a 78 year old male who admitted to care of hospitalist team yesterday. Payer: Medicare and [employer] [facility] PCP: Kayy Pt lives in [place] with his spouse. Went to room now to check in with pt and introduce self and role. Room empty and in process of being cleaned. Discussion with LYUDMILA Sebastian reveals that pt's arrived, Dr. Culp saw pt and ok'd home for a d/c home and outpt followup. They left for home shortly after and Jaz notes no concerns re this d/c were noted. CM Discharge Assessment Start: 08/05/18 14:06 Freq: Status: Active Protocol: Document 08/05/18 14:06 ITV (Rec: 08/05/18 14:07 [email or web address] [id number]) Discharge Planning Assessment Advance Directives? No History Provided By Medical Record Prior Living Arrangements House Household Members spouse Whiteboard Updated in Patient Room with Yes name and ext. # of Silk Soaker Review Status In Process Next Review Type Continued Stay Review Document 08/05/18 14:07 ITV (Rec: 08/05/18 14:08 ITV [id number]) Discharge Planning Assessment Advance Directives? No History Provided By Medical Record Prior Living Arrangements House Household Members spouse Whiteboard Updated in Patient Room with Yes name and ext. # of Silk Soaker Review Status In Process Next Review Type Continued Stay Review
[2018-08-06 14:07] LABS: Anti-Streptolysin O Antibody < 50 IU/mL (< 200)
== END 2018-08-05 13:57 | disposition home or self-care (01) ==
LOC: ED 13:17 → AC 13:21
PROVIDERS: Admitting Provider Internal Medicine; Emergency Provider Emergency Medicine; Visit Provider Internal Medicine
DX: J10.1 Influenza due to other identified influenza virus with other respiratory manifestations (principal); R11.2 Nausea with vomiting, unspecified; R19.7 Diarrhea, unspecified; I10 Essential (primary) hypertension; I48.2 Chronic atrial fibrillation
CPT/HCPCS: 36415; 36591; 71045; 74018; 80048; 80053; 81003; 81015; 82550; 82553; 83690; 84145; 84443; 84484; 85025; 85610; 85730; 86060; 87070; 87205; 87400; 87449; 87633; 93005; 94640; 94760; 96361; 96374; 99285; G0378; J1644; J2405; J7614

== ENCOUNTER → 2020-12-12 15:19 | Outpatient (CLI) | payer MEDICARE, BC, SELFPAY ==
[2018-08-04 14:02] VITALS: BMI 31.1
--- NOTE | 2020-12-12 | DI.RAD.S_ITS ---
PROCEDURE: XR SINUS MIN 3V INDICATIONS: SINUSITIS TECHNIQUE: 3 views of the sinuses were acquired. COMPARISON: None. FINDINGS: Sinuses: The visualized sinuses demonstrate no air-fluid levels or mucosal thickening. The visualized mastoids also appear clear. Bones: No suspicious bony lesions. Nasal septum is midline. IMPRESSION: Normal appearance of the visualized sinuses. Dictated by: Stephan Carranza RRA Interpreted: Zack Ballard MD on 12/12/2020 at 15:39 Transcribed by: KENIA on 12/12/2020 at 15:39 Approved by: Zack Ballard M.D. on 12/12/2020 at 17:08
== END ==
PROVIDERS: Referring Provider Family Medicine; Visit Provider Family Medicine
DX: J01.90 Acute sinusitis, unspecified (principal)
CPT/HCPCS: 70220

== ENCOUNTER → 2021-06-05 09:28 | Outpatient (CLI) | payer MEDICARE, BC, SELFPAY ==
[2018-08-04 14:02] VITALS: BMI 31.1
--- NOTE | 2021-06-05 09:32 | DI.CT.S_ITS ---
PROCEDURE: CT SINUS SCREEN WO CON INDICATIONS: Other acute sinusitis TECHNIQUE: Noncontrast 3.0 mm axial images acquired from the frontal sinuses to the mid-sella, with coronal and sagittal reformats. For radiation dose reduction, the following was used: automated exposure control, adjustment of mA and/or kV according to patient size. COMPARISON: None. FINDINGS: Maxillary Sinuses: Mucosal thickening noted in the floor of both maxillary sinuses measuring up to 7 mm The ostiomeatal units are patent bilaterally. No significant Nela ethmoid air cells present along the inferior medial orbital ramos. Sphenoid Sinuses: The sphenoethmoidal recesses are patent and unobstructed. The sphenoid sinuses are clear. minimal mucosal thickening noted involving the anterior wall maxillary sinus measuring up to 3 mm. Sphenoid pneumatization pattern is sellar, extending posteriorly beyond the tuberculum sella. No [place] or sphenoethmoidal air cells present. The optic nerve is well covered. Frontal Sinuses: Mucosal thickening and debris noted in the right frontal sinus recess resulting in obstruction of the egress channel. Left frontal sinus is clear. Ethmoid sinus: Minimal mucosal thickening noted throughout the ethmoid air cells. The fovea ethmoidalis and cribriform plate are unremarkable. The lamina papyracea are both structurally intact. Lateral lamella are symmetric. Nasal Cavity and Septum: Nasal turbinates unremarkable without pneumatization. both middle turbinates are hypoplastic. Cartilaginous and osseous components of the nasal septum intact and midline without perforation. Skull Base: The anterior cranial fossa and pituitary sella are unremarkable. No evidence of bony dehiscence. Both osseous orbits and contents are within normal limits. IMPRESSION: 1. Mucosal sinus disease as above. No osseous expansion or sclerosis. No air-fluid levels. Approved by: Fermín Mena M.D. on 06/05/2021 at 11:01
== END ==
PROVIDERS: Referring Provider Family Medicine; Visit Provider Family Medicine
DX: J01.80 Other acute sinusitis (principal)
CPT/HCPCS: 70486